=== PATIENT | male | born 1960 | race Caucasian/White ===

== ENCOUNTER → 2020-01-08 06:17 | Outpatient (CLI) | payer OTHER, SELFPAY ==
--- NOTE | 2020-01-08 06:18 | MRI_ITS ---
STUDY: MRI CERVICAL SPINE WITHOUT CONTRAST REASON FOR EXAM: Male, 59 years old. ddd pre op, L ARM NUMBNESS TECHNIQUE: Standardized fat and water weighted pulse sequences were obtained in the sagittal and axial planes. COMPARISON: 12/13/2019 FINDINGS: Cervical straightening. No significant scoliosis. Stable abnormal cord signal at the C4-5 level measuring approximately 1.2 cm in length (sagittal image 6 series 2). Nonspecific slightly asymmetric vascular flow voids. Moderate/severe multilevel facet joint arthrosis. No significant spondylolisthesis. Normal foramen magnum and brainstem-cervical cord junction. Normal craniovertebral junction. Normal anterior atlantoaxial articulation. Normal odontoid process. C2-3: Minimal endplate spondylosis. Shallow disc bulge. No central canal narrowing. Mild left neural foraminal narrowing. Normal right neural foramina. C3-4: Partial congenitally fused endplates. Congenital disc height loss. Normal neural foramina. C4-5: Mild endplate spondylosis. Disc/osteophyte complex. Severe central canal narrowing. Severe bilateral neural foraminal narrowing. C5-6: Mild endplate spondylosis. Disc/osteophyte complex asymmetric to the left. Severe central canal narrowing. Severe bilateral neural foraminal narrowing, left greater than right. C6-7: Mild endplate spondylosis. Disc/osteophyte complex. Moderate central canal narrowing. Severe bilateral neural foraminal narrowing. C7-T1: Normal endplates. Shallow disc/osteophyte complex. Normal central canal. Mild/moderate bilateral neural foraminal narrowing. MRI/Spine Cervical (Routine) IMPRESSION: Stable abnormal C4-5 cord signal (statistically myelomalacia; correlate short-term follow-up postcontrast evaluation) Stable multilevel intervertebral disc disease with central canal narrowing predominantly at C4-5 and C5-6 Multilevel severe neural foraminal narrowing predominantly at C4-5 through and C6-7 Cervical straightening with moderate/severe osteoarthritis Nonspecific asymmetric vertebral artery vascular flow voids (correlate ultrasound as clinically necessary) Electronically Signed: Anand Rosenberg DO at 11:20 EST Tel , Service support ,
== END ==
PROVIDERS: PCP Internal Medicine; Referring Provider Orthopaedic Surgery; Visit Provider Orthopaedic Surgery
DX: M54.12 Radiculopathy, cervical region (principal); Z20.828 Contact with and (suspected) exposure to other viral communicable diseases
CPT/HCPCS: 72141; 87426

== ENCOUNTER 2020-01-09 05:34 | Inpatient (IN) | payer OTHER, SELFPAY ==
[2019-12-20 13:08] VITALS: BMI 26.6
--- NOTE | 2020-01-03 10:01 | EKG12_ITS ---
Test Reason : PRE OP Blood Pressure : / mmHG Vent. Rate : 074 BPM Atrial Rate : 074 BPM P-R Int : 154 ms QRS Dur : 076 ms QT Int : 356 ms P-R-T Axes : 032 -20 034 degrees QTc Int : 395 ms Normal sinus rhythm Septal infarct , age undetermined Abnormal ECG Confirmed by CHERISE CH, MARTIN ([id number]), slot editor DYLAN FATIMA ([id number]) on 01/07/2020 9:28:48 AM Referred By: Alan Dueñas Confirmed By:MARTIN LUONG MD
[2020-01-03 10:49] LABS: Absolute Lymphocyte Count 1.62 X10^3/uL (0.83-4.51); Absolute Neutrophil Count 4.4 X10^3/uL (2.0-7.7); Basophil# 0.05 X10^3/uL; Basophil% 0.7 % (0-1); Eosinophil# 0.23 X10^3/uL; Eosinophils% 3.3 % (0-5); Hematocrit 43.7 % (40-54); Lymphocyte # 1.62 X10^3/ul (4.0); Lymphocyte % 23.4 % (19-41); Mean Corp Hgb Conc 34.3 g/dL (32-36); Mean Corpuscular Hgb 31.7 pg (27.0-32.0); Mean Corpuscular Volume 92.4 fL (80-94); Mean Platelet Vol. 9.4 fl (6.2-12.0); Monocyte# 0.61 X10^3/uL; Monocyte% 8.8 % (0-10); NRBC Flagged by Analyzer 0 % (0-5); Neutrophil # 4.38 X10^3/uL (2.7-7.7); Neutrophil % 63.5 % (47-70); POSITIVE COUNT YES; RBC Distribution Width CV 12.2 % (11.6-14.6); RBC Distribution Width SD 41.5 fl (35.1-43.9); Red Blood Count 4.73 M/mm3 (4.6-6.2); White Blood Count 6.9 K/mm3 (4.4-11.0)
[2020-01-03 10:51] LABS: International Normalized Ratio 0.9; Prothrombin Time (Protime)PT. 12.1 SECONDS (11.7-14.9)
[2020-01-03 10:52] LABS: Partial Thromboplast Time 25.3 Seconds (24.1-36.2)
[2020-01-03 11:17] LABS: Differential Indicated SCAN CRITERIA MET
[2020-01-03 11:19] LABS: Anion Gap 5 (5-15); BUN 20 mg/dL (7-18); BUN/Creat Ratio 24.7 RATIO (10-20); Calcium,Total 9.3 mg/dL (8.5-10.1); Chloride 104 mmol/L (98-107); Creatinine, Serum 0.81 mg/dL (0.70-1.30); Differential Comment SCANNED; EST Glomerular Filtration Rate 104 mL/min (>60); Est Glom Filt Rate - Afr Amer 126 mL/min (>60); Glucose 88 mg/dL (74-106); Magnesium 1.9 mg/dL (1.6-2.6); Platelet Estimate ADEQUATE (ADEQ); Potassium 4.4 mmol/L (3.5-5.1); Sodium Level 137 mmol/L (136-145)
[2020-01-03 11:37] LABS: AST(SGOT) 19 U/L (15-37); Alanine Aminotransfer ALT/SGPT 25 U/L (16-61); Albumin, Serum 4.1 g/dL (3.2-5.0); Alkaline Phosphatase 133 U/L (45-117); Bilirubin, Direct 0.05 mg/dL (0.00-0.30); Globulin 3.3 g/dL (2.2-4.2); Protein, Total 7.4 g/dL (6.4-8.2)
[2020-01-03 13:25] LABS: HIV - WCH Non-Reactive (Nonreactive)
[2020-01-04 06:08] LABS: HEPATITIS B SURFACE AG Negative (Negative); Hepatitis A AB, Total Negative (Negative); Hepatitis A IgM Antibody Negative (Negative); Hepatitis B Core AB IgM Negative (Negative); Hepatitis B Core Ab Total Negative (Negative); Hepatitis C Ab <0.1 s/co ratio (0.0-0.9)
[2020-01-04 08:05] LABS: Hep B Surface Antibodies Non Reactive (.)
[2020-01-09] VITALS (12 sets, daily range): BP systolic 116–140; BP diastolic 72–96; PULSE 71–90; RESP 14–18; TEMP 36.7–37.6; O2SAT 92–100; BMI 27.0
--- NOTE | 2020-01-09 06:00 | HP_ITS ---
Intake Vital Signs 12/20/19 Height 5 ft 6 in 12/20/19 Weight: 165 lb 12/20/19 BMI 26.6 Intake Visit Reasons: Cervical spine Accompanied by: Spouse Is patient in pain?: Yes Pain scale (1-10): 8 Allergies No Known Allergies Allergy (Unverified 12/20/19 13:09) Medications naproxen sodium 220 mg capsule 220 mg PO BID PRN 12/20/19 [History Confirmed 12/20/19] PFS Medical History (Updated 12/20/19 @ 13:11 by Elida Enriquez) H/o right foot surgery (Acute) h/o lumbar surgery (Acute) Surgical History (Updated 12/20/19 @ 13:11 by Elida Enriquez) History of tonsillectomy (Acute) Family History (Updated 12/20/19 @ 13:12 by Elida Enriquez) Mother Myocardial infarction Hypertension Father Hypertension Social History (Updated 12/20/19 @ 15:[address] Alan Dueñas DO) household members: spouse housing: house current occupational status: employed pets and animals: Yes Smokeless tobacco user: chewing tobacco alcohol intake: current alcohol intake frequency: a few times a week substance use type: does not use what type of physical activity do you participate in: none seatbelt use: always do you feel safe at home: Yes HPI Cervical spine: Details: Parts of this documentation were recorded by a scribe, this documentation accurately reflects the service provided and the decisions made by me, Dr. Alan Dueñas DO 12/20/19 1300. ARUN HOLMAN is a 59 year old M here today to establish as a new patient. Patient was referred by from [facility]. Patient has c/o cervical pain. Reports numbness down legs and arms. Denies any accident or injuries. Denies previous surgeries with his cervical and denies previous injections. Patient has been taking Aleve for pain relief. Patient believes this issue started years ago, worsening. Patient brought in an imaging disc from [facility] with cervical x-ray and MRI. Mr. Lorenz is a most pleasant gentleman 59 years old who is here today in the company of his . He was referred to me by Dr. Shane Dawkins at [facility]. Dr. Dawkins discussed the case with me prior to my seeing him. He and his relate that he has been walking funny for many many months. The last 3 or 4 months that has gradually even worsened. He also gets numbness in both his legs in both his arms. The left arm in particular feels heavy according to the patient. He has significant amount of pain in his neck. The and both agree that gradually the ambulation and the symptoms have worsened. He states that sometimes when he empties his bladder he feels like perhaps his not all the way empty. However he has no trouble starting his stream. He has not soiled himself. He denies history of unexplained weight loss night fever sweats or chills. On examination it is noted that he has a spastic unsteady gait. This is typical of serious cord signs. He has hyperreflexia particularly of the patellar reflexes on both sides. He has no clonus per se but he has Babinski's are upgoing. He has reasonable strength of the major muscle groups of the lower extremity. His neck is stiff to extension or flexion. He has weakness of the biceps on the left as compared to the right. He perhaps has some weakness of the triceps on the left as compared to the right. Wrist extensors seem to be good. He has atrophy of the left biceps muscle as compared to the right. Wrist extensors are equal bilaterally. I reviewed his MRI scan that demonstrates severe stenosis at C4-5 with marked to myelomalacia just below it. In addition he has severe stenosis at C5-6 though not as bad and there is no hard evidence of any myelomalacia at that level. There is also degeneration at see 6 7 however there is no stenosis there. Plain x-rays demonstrate degeneration at all 3 said levels C4-5 C5-6 and C6-7. Our plan is to proceed with surgical decompression in the form of anterior cervical fusion and discectomy at C4-5 C5-6 and possibly C6-7. I have not decided if C6-7 should even be done but the other 2 must be done. I will convey this to Dr. Dawkins who would like to assist with the surgery. I had a long discussion with the patient and his . I discussed the absolute necessity to decompress the spinal cord because of the myelomalacia of the cord. I described it to them as a degeneration of the cord secondary to pressure. They were in full agreement that we must proceed as quick as is reasonably possible. This is not an emergency however is is a relative urgency and we will do it in the not too distant future. I answered all their questions I will see him again 1 week prior to surgical intervention. ROS Const Reports weakness Musc Reports system reviewed and no additional complaints, except as docu, Reports joint pain, Reports limited joint movement, Reports numbness, Reports stiffness, Reports tingling Skin/Breast Denies system reviewed and no additional complaints, except as docu, Denies dry skin, Denies redness, Denies lesions, Denies new lesions, Denies non-healing lesions, Denies itching, Denies rash, Denies skin ulcer, Denies sores, Denies unusual bruising, Denies wounds Neuro Yes system reviewed and no additional complaints, except as docu, Yes numbness, Yes tingling, Yes weakness Assessment & Plan Orders Orders: Cerv Spine 2 or 3 Views Today M54.2 Coding Level of Care Code Off vis,new,level 4 Time Spent (min) 50
[2020-01-09 06:15] LABS: Bedside Glucose 100 mg/dL (70-110)
[2020-01-09] MEDS: Lactated Ringers 1,000 ML 100 ML IV ×4 (06:33→21:56)
[2020-01-09] MEDS: Acetaminophen 500 MG Tablet 1000 MG PO (06:35)
[2020-01-09] MEDS: Heparin 10,000 UNITS/10 ML Vial 10000 UNITS (07:22)
--- NOTE | 2020-01-09 07:30 | DISC_PTH ---
PATIENT: ARUN HOLAMN LOC: [facility] U#:[id number] AGE/SX: 59/M ROOM: [facility]308 RE01/09/[address]: Dr. Alan Dueñas DO : 1960 BED: 1 DIS: 01/10/2020 SPEC #: [id number] RECD: 01/09/20 14:51 STATUS: LASHA REQ #: [id number] ANNE MARIE: 01/09/20 07:[address]: Alan Dueñas DEPT: SURGICAL PATHOLOGY RECD BY: Palak Vazquez ENTERED: 01/10/20 07:39 SP TYPE: DISC OTHR DR: DO Dr. Fabián Blanco DO Tissues: A - Intervertebral disc, NOS B - Intervertebral disc, NOS Procedures: Decalcification bone/plaque Surgery Specimen Level III HEADER OPERATION: ERAS, discectomy anterior cervical fusion C4-5, C5-6, C6-7 PRE-OP DIAGNOSIS: C4-5 with marked myelomalacia, severe stenosis C5-6 TISSUE SUBMITTED: A - Cervical disc C4-5, B - Cervical disc C5-7 MICROSCOPIC DIAGNOSIS A. Cervical disc, C4-5, discectomy: Degenerative change. Focal bone marrow elements with no pathologic change. B. Cervical disc, C5-7, discectomy: Degenerative change. AM:kimberley 01/14/20 MICROSCOPIC DESCRIPTION Slides are reviewed. GROSS DESCRIPTION A - Received in fixative is one container labeled with the patient's name and designated cervical disc C45. The specimen consists of multiple irregular and indurated fragments of white-bautista soft tissue that in aggregate measure 2.5 x 1.5 x 0.2 cm. The specimen is totally submitted in one cassette after decalcification. B - Received in fixative is one container labeled with the patient's name and designated cervical disc C57. The specimen consists of multiple irregular and indurated fragments of white-bautista soft tissue that in aggregate measure 2.5 x 1.5 x 0.2 cm. The specimen is totally submitted in one cassette after decalcification. / AM:kimberley 01/13/20 TC:5 CPT: 55560 x2, 23879 x2
--- NOTE | 2020-01-09 07:30 | RAD_ITS ---
STUDY: X-RAY - CERVICAL SPINE REASON FOR EXAM: Male, 59 years old. Pre-incision for anterior cervical fusion, c4-5, c5-6, c7. TECHNIQUE: Lateral view of the cervical spine was obtained. COMPARISON: Lateral view of the cervical spine 01/09/2020. FINDINGS: Needle localizer device is pointing in the anterior aspect of the C6-C7 disc space level. This was previously penetrating the lower anterior C5 vertebral body. RAD/Spine 1 View Any Level IMPRESSION: Needle localizer device this in the anterior aspect of the C6-C7 disc space, previously penetrating the lower C5 vertebral body. Electronically Signed: Maximino Negron MD at 12:36 EST , Service support ,
--- NOTE | 2020-01-09 07:30 | RAD_ITS ---
STUDY: X-RAY - CERVICAL SPINE REASON FOR EXAM: Male, 59 years old. Anterior cervical fusion, positioning check c6-7. TECHNIQUE: 1 lateral view of the cervical spine was obtained. COMPARISON: 12/20/2019. FINDINGS: Normal anterior atlantoaxial articulation. Normal odontoid process. Normal cervical lordosis. 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 Needle localizer penetrating the lower C5 vertebral body. The soft tissue structures are unremarkable. RAD/Spine 1 View Any Level IMPRESSION: Needle localizer penetrating the lower C5 vertebral body. Electronically Signed: Maximino Negron MD at 12:26 EST , Service support ,
[2020-01-09] MEDS: THROMBIN (RECOMBINANT) 20,000 UNIT VIAL 20000 UNIT TOPICAL (08:00)
[2020-01-09] MEDS: Cefazolin 2 GM in 0.9% Normal Saline 100 ML IV (08:09)
--- NOTE | 2020-01-09 12:48 | RAD_ITS ---
HISTORY: anterior cervical fusion C7 position check ADDITIONAL HISTORY: None provided. EXAMINATION/TECHNIQUE: XR Spine Cervical 1 View Number of images including paperwork: 2 COMPARISON: 01/09/2020 FINDINGS/IMPRESSION: Single lateral view shows performed for operative purposes shows anterior plate and interbody screws C4-C7 with intervening disc spacers. No definite radiographic evidence of hardware complication. at 0022 Reported and signed by: Radha Mtz MD Electronically Signed: Radha Mtz MD at 0:22 EST Tel , Service support , RAD/Spine 1 View Any Level
--- NOTE | 2020-01-09 13:46 | OP.PCM_ITS ---
Report of Operation Description of Surgical Findings:: Preoperative diagnosis: #1 cervical myelopathy secondary to large herniated C4-5 disc with secondary myelomalacia of the spinal cord at that level #2 gated disc with her disc disease at C6-7 with left C6 radiculopathy #3 degenerative disc disease C6-7 Postoperative diagnoses: Same Procedures: 1. Cervical fusion C6-7 #2 insertion of titanium cage C6-7 #3 anterior cervical fusion C5-6 #4 insertion of titanium cage C5-6 #5 anterior cervical fusion C4-5 #6 insertion of cage at C4-5 #7 application of spinal plate from C4-C7 #8 bone marrow aspirate from right iliac crest Surgeon: Dr. Dueñas [employer]: Dr. Bigg Dawkins Second quality control assistant: Costa Gonzalez Anesthesia: [facility] EBL: 30 cc +60 cc of bone marrow aspirate Drain: 1/4 inch [place] Complications: None Patient was taken to the OR where he was put in the supine position under general endotracheal anesthesia. A Ashley catheter was inserted. Needle placements were done by the medication technician performing the neuro monitoring during the case. Once positioned properly with a bolster under her shoulders to gently extend his neck a preoperative x-ray was taken with a needle taped to the side of the neck. Once this was done I was able to marked the neck with a small laceration using the end of an 18-gauge needle in the midline which would be the starting point for the incision. The neck and right iliac crest were then prepped and draped in standard fashion. A transverse incision in line with longer's lines starting just across the midline toward the left and going toward the right to the edge of the right sternocleidomastoid muscle. Subcutaneous tissues were incised the length of the skin incision. I then elevated the subcutaneous tissues but is undermined them off of the platysma in both a cephalad direction for a couple or 3 cm in a caudad direction 2 to 3 cm. We [place] retractor was then put in place to hold the skin open. I then cauterized the line along the near the medial portion of the platysma. Using tissue scissors I then split the platysma in an up-and-down fashion along the cauterized line. I then began development of the fascial planes first opening the superficial of the cervical fascia in both directions. Fashion I was able to feel the carotid pulse and I retracted it toward the right side and retracted the trachea and esophagus toward the left side. I then developed more fascial planes including the exploitation of the pretracheal fascia. Found the precerv ical fascia and the spinal vertebra. I was able to feel the anterior osteophytes along 3 levels I then marked the one that I thought would be C6-7 with a bent needle and an intraoperative x-ray was taken to confirm that that was indeed C6-7. I then removed the needle and cauterized the middle of the anterior disc so as to not lose her place. The neck elevated the periosteum off of the anterior osteophytes to both directions. I then removed the osteophytes with double-action rongeurs and a gavin bur. Made the anterior vertebral bodies relatively flat. Cauterized the edge of the longus coli muscles and elevated them gently off of the disc space on either side. Self retaining lap belt retractors were then used placed under the coli and giving us good access to the space. I then used a 15 blade to remove the anterior a just note that it was calcified and I was able to cut some of it has had to open some up with an osteotome. Fashion I remove the anterior annulus and then continue to remove the nucleus from within the disc space. Then used curettes to go all the way back to the posterior part of the annulus and then remove the cartilage off both endplates of see 6 in the endplate of C7. He is my trials started with a 5 mm trial and L and went to a 6mm trial the larger of the 2 cage sizes. Or 16-1/2 x 14. But up using a 6 mm high cage. The cage was then opened. Prior to this I placed a very small incision over the right ASIS and used a Jamshidi needle tamped into place and we were able to obtain 60 cc of bone marrow aspirate. This was handed off to the technicians I in the room who then use their machine to spin down and the plasma from the stem cells and the red cells. The stem cells were then concentrated between 8 and 10 times and given back to us. I then filled the middle of the 6 mm cage with spongy allograft bone that was then soaked in the patient's own stem cell. This was tamped into place and countersunk a millimeter. Then moved up to the next level which would be 5 6. An elevator the coli muscles off either side and put the retractors at the 5 6 level. I then cut the anterior annulus again it was calcified and we had to use an osteotome to release part of it but finally it was removed. Removed more disc from the disc space with pituitary rongeurs. Note that he had this left C6 radiculopathy in addition to the myelopathy because of the hard disc disease that he had and to the herniation that he had at 5 6 to the left side. Using a gavin bur I then burred the uncinate process down to a thin shell. Technique was done repeatedly followed by the instillation of cold saline until it was a thin shell of bone left. Then pulled this away with a small sharp curettes completed decompressing the base of the C6 nerve root. Was open as it was checked with a nerve hook. I then used curettes to remove all the cartilage off both endplates. Measurements were taken with trials and we found that we would need a 7 mm large cage at this level. As it the other level we used the broach to broach the space until it was both flat and the endplate was bleeding. I then tamped the 7 mm cage into the place after again filling it with spongy bone and soaking it in the patient's own stem cells. Then moved up to the C4-5 level. Again I cauterized the coli muscles on the edges on either side and elevated them gently off of the disc space I then put the self-retaining retractors in place. I first I removed the periosteum off of the anterior osteophytes and double-action rongeurs and a bur was able to flatten those down. Sent again as the other 2 levels it was also calcified I had to use both the osteotome and sharp 15 blade knife to cut it out and remove it. Pituitary rongeurs I removed more disc from the disc that from within the disc space back to the posterior annulus but that we did use distractors that were intervertebral distractors first on one side than the next. Using the gavin bur I was able to increase the size of the posterior space and opened the curved uncinate areas on both sides to make them more a flat for receipt of a cage. Using both a curette and a bur I was able to slowly go all the way back to the full removal of the exterior annulus right down to the posterior longitudinal ligament. Note that this annulus was protruded significantly into the canal giving him the severe spinal stenosis at that level. This was the cause of the myelomalacia just below the C4-5 disc. Then took her measurements for the cage we found that we would be able to use a 9 mm high's 16-1/2 x 14 cage all the cages had 7 degree angles. I again prepared to the endplates by removing all the cartilage off of them and then using the broach to flatten to allow for the cage. The 9 mm cage was then filled with spongy allograft bone and soaked in the patient's own stem cells. This was then tamped into place and countersunk a couple of millimeters. We left the self-retaining retractors at that level and that we moved down to below that level to open the incision with another self- retaining retractor. Gave us reasonable access to the entire 3 levels. Used a spider plate that was 68 mm long with 8 holes landed up anteriorly with 2 holes over C4 to over C5 to over C6 and 2 over C7. Implants were then stopped put in place to keep the cage from moving in the first of 4 screws were inserted. We used the awl to start a hole the use of self-tapping 16mm long screws and put a 2 into each of the 4 vertebra. This was observed to the lateral x-ray was found to be very satisfactory with good position of the plate the screws and cages. Note that thorough irrigation was carried out in the course of the case every 15 or 20 minutes. We did 1 final time. We then placed amniotic membranes directly over the 8 hole plate to prevent their adhesions to the esophagus. 1/4 inch [place] drain was then inserted. We then closed the platysma and running fashion with 5-0 Vicryl. This was followed by closure of the subcutaneous tissues with 5-0 Vicryl in interrupted fashion. This reapproximated the skin and there was no need for outside stitches. Sterile dressings were applied note that a safety pin was placed through the drain to prevent a suction into the wound. The patient was then recovered in the OR he was moved to his hospital bed and taken to recovery in satisfactory condition.
--- NOTE | 2020-01-09 16:07 | PCM.PROGNOTE ---
Subjective: Patient seen and examined. Pain currently well controlled. Denies current symptoms or complaints. - Physical Exam Vitals/I&O's: Vital Signs Temp Pulse Resp BP Pulse Ox 98.9 F 81 16 137/83 H 92 01/09/20 15:44 01/09/20 15:44 01/09/20 15:44 01/09/20 15:44 01/09/20 15:44 Oxygen Flow Rate (L/min) 6 Oxygen Delivery Method Room Air Weight: 167 lb 5.294 oz Body Mass Index (BMI) 27.0 Intake and Output for Last 24 Hours 01/07/20 01/08/20 01/09/20 23:59 23:59 23:59 Intake Total 2214.5 / 2214.5 Output Total 300 / 300 Balance 1914.5 / 1914.5 General: Alert, Oriented x3, Cooperative HEENT: Atraumatic, PERRLA, EOMI, Normocephalic Neck: Supple, No JVD, Negative Carotid Bruits Lungs: Clear to auscultation, Normal air movement Cardiovascular: Regular rate, No murmurs Abdomen: Bowel Sounds Present, Soft, Non Tender Extremities: No clubbing, No cyanosis, No edema, Capillary Refill Less than 3 Seconds Skin: No rashes, No breakdown Musculoskeletal: No Tenderness to Palpation of Joints or Extremities Neurological: Cranial nerves II-XII grossly intact, Neuro grossly intact Psych/Mental Status: Normal Affect, Appropriate Laboratory Results 01/09/20 06:07: POC Glucose 100 Current Medications Enteral Nutritional Formula (Ensure Surgery 237 Ml Liquid) 237 ml PO TIDCM [facility] Famotidine (Famotidine 20 Mg Tablet) 20 mg PO BID [facility] Lactated Ringer's () 1,000 mls @ 100 mls/hr IV .Q10H [facility] Cefazolin Sodium () 1 gm in 50 mls @ 100 mls/hr IV Q8H [facility] Stop: 01/10/20 00:29 Sodium Chloride () 250 mls @ 15 mls/hr IV .[id number] PRN PRN Reason: Saline Flush Sodium Chloride () 250 mls @ 15 mls/hr IV .[id number] PRN PRN Reason: Additional IVPB Infusion Insulin Human Lispro (Insulin Lispro 100 Unit/Ml Insuln.Pen) 1 - 6 unit SC Q4H PRN PRN; Protocol PRN Reason: BG>/= 180, SEE PROTOCOL Stop: 01/09/20 18:00 Morphine Sulfate (Morphine 4 Mg/Ml Syringe) 2 - 4 mg IV Q2H PRN PRN PRN Reason: Pain Score 6-10 Morphine Sulfate (Morphine 2 Mg/Ml Syringe) 2 - 4 mg IV Q2H PRN PRN PRN Reason: Pain Score 6-10 Ondansetron HCl (Ondansetron 4 Mg/2 Ml Vial) 4 mg IV Q8H PRN PRN PRN Reason: NAUSEA Senna/Docusate Sodium (Senna/Docusate Sodium 1 Tablet) 2 tablet PO BID [facility] Sodium Chloride (0.9% Nacl Peripheral Flush Adult/Peds) 5 - 15 ml IV UD PRN PRN Reason: SALINE FLUSH Sodium Chloride (0.9% Saline Lock 10 Ml Syringe) 10 - 40 ml IV UD PRN PRN Reason: SALINE FLUSH Zolpidem Tartrate (Zolpidem Tartrate 5 Mg Tablet) 5 mg PO QHS PRN PRN PRN Reason: INSOMNIA Medical Necessity - Tobacco Use Tobacco Use: Chew Assessment/Plan 1. DDD cervical spine- Cervical myelopathy secondary to large herniated C4-5 disc with secondary myelomalacia of the spinal cord, gated disc disease C6-7 with left C6 radiculopathy and degenerative disc disease C6-7-status post cervical fusion C6-7 with insertion of titanium cage C6-7, anterior cervical fusion C5-6 insertion of titanium cage C5-6, anterior cervical fusion C4-5 with insertion of cage C4-5 application of spinal plate from C4-C7 which was performed by Dr. Dueñas 01/09/2020. Management per surgery. Patient denies other medical history. He takes no daily medications. Hospitalist services available if any issues or concerns arise. DVT prophylaxis- SCDs This patient was seen by Paty Truong NP-Anibal under the supervision of Dr. Pritchard.
[2020-01-09] MEDS: Cefazolin 1 GM/50 ML BAG IV ×2 (17:13→23:20)
[2020-01-09] MEDS: Morphine 2 MG/ML Syringe IV (20:53)
[2020-01-09] MEDS: Senna/Docusate Sodium 1 Tablet 2 TABLET PO (21:06)
[2020-01-09] MEDS: Famotidine 20 MG Tablet PO (21:06)
[2020-01-10 03:17] VITALS: BP 152/89; PULSE 78; RESP 18; TEMP 36.7; O2SAT 97
[2020-01-10] MEDS: Morphine 2 MG/ML Syringe IV (03:24)
[2020-01-10] MEDS: 0.9% NaCl Peripheral Flush Adult/Peds IV ×2 (05:42→11:58)
[2020-01-10 07:20] VITALS: BP 137/91; PULSE 88; RESP 18; TEMP 36.8; O2SAT 96
[2020-01-10] MEDS: Famotidine 20 MG Tablet PO (08:55)
[2020-01-10] MEDS: Senna/Docusate Sodium 1 Tablet 2 TABLET PO (08:55)
--- NOTE | 2020-01-10 09:50 | CASEMGMT ---
RN CM Face to Face with patient for initial transition planning/care coordination assessment. RN CM introduced self and role at [facility]. Patient sitting in chair, alert and oriented. Patient willing to participate in assessment and is able to answer all questions appropriately. Care providers, pharmacy, and demographics verified. Patient wishes to discharge home, denies need for home health at this time. Patient states he has no further needs or concerns at this time. CM to follow for discharge planning needs that may arise. PCP: Mary Specialists: [facility] Preferred Pharmacy: [facility] Insurance: MMO Prescription Benefit: yes Living Will/HPOA: none LNOK: Living Arrangements: Patient lives with in a 1 story home with ramp to enter the home. Patient was independent at home prior to discharge. Transportation: DME/HHC: Patient states she has shower chair, raised toilet, cane, walker, and grab bars. Patient denies previous HHC. Disposition Plan: Patient to discharge home with family support and follow-up plans in place. Kelly PRESSLEY, RN, CM
--- NOTE | 2020-01-10 10:45 | PCM.PROGNOTE ---
<Paty Truong CHURNER - Last Filed: 01/10/20 10:47> Subjective: Patient seen and examined. Reports pain is tolerable. Complains of mild sore throat. Denies other symptoms or complaints. - Physical Exam Vitals/I&O's: Vital Signs Temp Pulse Resp BP Pulse Ox 98.3 F 88 18 137/91 H 96 01/10/20 07:20 01/10/20 07:20 01/10/20 07:20 01/10/20 07:20 01/10/20 07:20 Oxygen Flow Rate (L/min) 6 Oxygen Delivery Method Room Air Weight: 167 lb 5.294 oz Body Mass Index (BMI) 27.0 Intake and Output for Last 24 Hours 01/08/20 01/09/20 01/10/20 23:59 23:59 23:59 Intake Total 3797.83 / 3797.83 735 / 735 Output Total 1600 / 1600 1175 / 1175 Balance 2197.83 / 2197.83 -440 / -440 General: Alert, Oriented x3, Cooperative HEENT: Atraumatic, PERRLA, EOMI, Normocephalic Neck: Supple, No JVD, Negative Carotid Bruits Lungs: Clear to auscultation, Normal air movement Cardiovascular: Regular rate, No murmurs Abdomen: Bowel Sounds Present, Soft, Non Tender, Non-Distended Extremities: No clubbing, No cyanosis, No edema, Capillary Refill Less than 3 Seconds Skin: No rashes, No breakdown Musculoskeletal: No Tenderness to Palpation of Joints or Extremities Neurological: Cranial nerves II-XII grossly intact, Neuro grossly intact Psych/Mental Status: Normal Affect, Appropriate Current Medications Hydrocodone Bitart/Acetaminophen (Hydrocodone Bitartrate/Apap 5/325 Tablet) 7.5 tablet PO Q4H PRN PRN PRN Reason: Pain Score 1-10 Enteral Nutritional Formula (Ensure Surgery 237 Ml Liquid) 237 ml PO TIDCM [facility] Last Admin: 01/10/20 08:59 Dose: Not Given Documented by: Famotidine (Famotidine 20 Mg Tablet) 20 mg PO BID [facility] Last Admin: 01/10/20 08:55 Dose: 20 mg Documented by: Lactated Ringer's () 1,000 mls @ 100 mls/hr IV .Q10H [facility] Last Admin: 01/10/20 05:47 Dose: Not Given Documented by: Sodium Chloride () 250 mls @ 15 mls/hr IV .[id number] PRN PRN Reason: Saline Flush Sodium Chloride () 250 mls @ 15 mls/hr IV .[id number] PRN PRN Reason: Additional IVPB Infusion Morphine Sulfate (Morphine 4 Mg/Ml Syringe) 2 - 4 mg IV Q2H PRN PRN PRN Reason: Pain Score 6-10 Morphine Sulfate (Morphine 2 Mg/Ml Syringe) 2 - 4 mg IV Q2H PRN PRN PRN Reason: Pain Score 6-10 Last Admin: 01/10/20 03:24 Dose: 2 mg Documented by: Ondansetron HCl (Ondansetron 4 Mg/2 Ml Vial) 4 mg IV Q8H PRN PRN PRN Reason: NAUSEA Senna/Docusate Sodium (Senna/Docusate Sodium 1 Tablet) 2 tablet PO BID [facility] Last Admin: 01/10/20 08:55 Dose: 2 tablet Documented by: Sodium Chloride (0.9% Nacl Peripheral Flush Adult/Peds) 5 - 15 ml IV UD PRN PRN Reason: SALINE FLUSH Last Admin: 01/10/20 05:42 Dose: 10 ml Documented by: Sodium Chloride (0.9% Saline Lock 10 Ml Syringe) 10 - 40 ml IV UD PRN PRN Reason: SALINE FLUSH Zolpidem Tartrate (Zolpidem Tartrate 5 Mg Tablet) 5 mg PO QHS PRN PRN PRN Reason: INSOMNIA Medical Necessity - Tobacco Use Smoking Status: Former smoker Tobacco Use: Chew Assessment/Plan 1. DDD cervical spine- Cervical myelopathy secondary to large herniated C4-5 disc with secondary myelomalacia of the spinal cord, gated disc disease C6-7 with left C6 radiculopathy and degenerative disc disease C6-7-status post cervical fusion C6-7 with insertion of titanium cage C6-7, anterior cervical fusion C5-6 insertion of titanium cage C5-6, anterior cervical fusion C4-5 with insertion of cage C4-5 application of spinal plate from C4-C7 which was performed by Dr. Dueñas 01/09/2020. Management per surgery. Patient denies other medical history. He takes no daily medications. Hospitalist services available if any issues or concerns arise. Will sign off at this time. DVT prophylaxis- SCDs This patient was seen by CARLOS Deutsch under the supervision of Dr. Springer. <Mejia Lloyd - Last Filed: 01/10/20 14:35> Objective: Patient had cervical spine discectomy surgery yesterday. Complains of mild sore throat. Physical exam General: Alert, Oriented x3, Cooperative HEENT: Atraumatic, PERRLA, EOMI, Normocephalic Oral: No Gingival or Mucosal Lesions/ Ulcerations Neck: Surgical dressing present on the right anterior lateral neck. Dry. Cervical spine collar. No JVD, Negative Carotid Bruits Lungs: Air entry diminished in bilateral lung bases. No crepitation/rhonchi Cardiovascular: Regular rate, Regular Rhythm, Normal S1, Normal S2, No murmurs Abdomen: Bowel Sounds Present, Soft, Non Tender, Non-Distended : No renal angle tenderness. No suprapubic tenderness. Extremities: No edema, Capillary Refill Less than 3 Seconds Skin: No rashes, No breakdown Musculoskeletal: Mild weakness of the biceps on the left, triceps with mild atrophy of the left biceps muscle. No Tenderness to Palpation of Joints or Extremities Neurological: Cranial nerves II-XII grossly intact, Numbness and tingling of both upper extremities.bilateral knee reflex hyper 3/4. Babinski upgoing, chronic. Psych/Mental Status: Normal Affect, Appropriate. - Physical Exam Vitals/I&O's: Vital Signs Temp Pulse Resp BP Pulse Ox 98.3 F 88 18 137/91 H 96 01/10/20 07:20 01/10/20 07:20 01/10/20 07:20 01/10/20 07:20 01/10/20 07:20 Oxygen Flow Rate (L/min) 6 Oxygen Delivery Method Room Air Weight: 167 lb 5.294 oz Body Mass Index (BMI) 27.0 Intake and Output for Last 24 Hours 01/08/20 01/09/20 01/10/20 23:59 23:59 23:59 Intake Total 3797.83 / 3797.83 1555 / 1555 Output Total 1600 / 1600 1175 / 1175 Balance 2197.83 / 2197.83 380 / 380 Current Medications Hydrocodone Bitart/Acetaminophen (Hydrocodone Bitartrate/Apap 5/325 Tablet) 1.5 tablet PO Q4H PRN PRN PRN Reason: Pain Score 1-10 Last Admin: 01/10/20 12:11 Dose: 1.5 tablet Documented by: Enteral Nutritional Formula (Ensure Surgery 237 Ml Liquid) 237 ml PO TIDCM [facility] Last Admin: 01/10/20 12:00 Dose: Not Given Documented by: Famotidine (Famotidine 20 Mg Tablet) 20 mg PO BID [facility] Last Admin: 01/10/20 08:55 Dose: 20 mg Documented by: Lactated Ringer's () 1,000 mls @ 100 mls/hr IV .Q10H [facility] Last Admin: 01/10/20 05:47 Dose: Not Given Documented by: Sodium Chloride () 250 mls @ 15 mls/hr IV .[id number] PRN PRN Reason: Saline Flush Sodium Chloride () 250 mls @ 15 mls/hr IV .[id number] PRN PRN Reason: Additional IVPB Infusion Morphine Sulfate (Morphine 4 Mg/Ml Syringe) 2 - 4 mg IV Q2H PRN PRN PRN Reason: Pain Score 6-10 Morphine Sulfate (Morphine 2 Mg/Ml Syringe) 2 - 4 mg IV Q2H PRN PRN PRN Reason: Pain Score 6-10 Last Admin: 01/10/20 03:24 Dose: 2 mg Documented by: Ondansetron HCl (Ondansetron 4 Mg/2 Ml Vial) 4 mg IV Q8H PRN PRN PRN Reason: NAUSEA Senna/Docusate Sodium (Senna/Docusate Sodium 1 Tablet) 2 tablet PO BID [facility] Last Admin: 01/10/20 08:55 Dose: 2 tablet Documented by: Sodium Chloride (0.9% Nacl Peripheral Flush Adult/Peds) 5 - 15 ml IV UD PRN PRN Reason: SALINE FLUSH Last Admin: 01/10/20 11:58 Dose: 10 ml Documented by: Sodium Chloride (0.9% Saline Lock 10 Ml Syringe) 10 - 40 ml IV UD PRN PRN Reason: SALINE FLUSH Zolpidem Tartrate (Zolpidem Tartrate 5 Mg Tablet) 5 mg PO QHS PRN PRN PRN Reason: INSOMNIA Assessment/Plan This patient was seen in conjunction with CHURNERPaty. I have independently interviewed and examined the patient and reviewed pertinent history, examination findings, laboratory and plan of management. I have reviewed the note and agree with the documented findings with the few additional points. In brief, patient is 59 gentleman with history of chronic neck stiffness along with mild weakness of left biceps and triceps as per the note of Dr. Dueñas. Patient had cervical fusion of cervical fusion of C6-C7 with insertion of a titanium cage at C6-C7 along with an anterior cervical fusion C5-C6 with insertion of a titanium cage C5-C6, and anterior cervical fusion C4-C5 with insertion of cage at C4-C5 with application of a spinal plate from C4-C7, and a bone marrow aspirate from the right iliac crest for cervical myelopathy secondary to large herniated C4-5 disc with secondary myelomalacia of the spinal cord at that level. Left C6 radiculopathy and degenerative disc disease of C6-7. H&P reviewed. Patient has cervical collar. Surgical dressing is dry. Patient heart rate and blood pressure are good and in normal range. No hypoxia or tachypnea. Since patient does not have any active medical history of hypertension diabetes. Hospitalist service will sign off. I have discussed my assessment with Paty LOPES and orders have been reviewed. Inpatient E&M: 50156 Subs Hosp L2
[2020-01-10] MEDS: dexAMETHasone 4 MG/ML Vial 8 MG IV (11:58)
[2020-01-10] MEDS: HYDROcodone Bitartrate/Apap 5/325 Tablet PO (12:11)
[2020-01-10 13:30] VITALS: BP 130/88; PULSE 86; RESP 18; TEMP 36.7; O2SAT 94
--- NOTE | 2020-01-10 16:23 | PCM.PN.BLA ---
Progress Note Mr. Lorenz is seen on rounds. This is postop day #1. He has no complaints. His voice is reasonably clear and he does not have a Mireya's syndrome. Dressing was changed the drain was removed his incision is healing well. Eating a soft diet today and is having a little trouble swallowing but not a major problem. Logically of course he is unchanged he still has some mild clonus. Menses are still upgoing. No has atrophy of the left deltoid. Was given instructions and told that he could the dressing on until Monday at which time he is to take it off and leave it open to the air. He may take shower on Monday. He will be discharged today he is to follow-up in the office 1 week from Monday
--- NOTE | 2020-01-10 17:09 | DS.PCM_ITS ---
Discharge Summary Date of Admission: 01/09/20 Date of Discharge: 01/10/20 - Physical Exam Vitals/I&O's: Vital Signs Temp Pulse Resp BP Pulse Ox 98.1 F 86 18 130/88 H 94 01/10/20 13:30 01/10/20 13:30 01/10/20 13:30 01/10/20 13:30 01/10/20 13:30 Oxygen Flow Rate (L/min) 6 Oxygen Delivery Method Room Air Weight: 167 lb 5.294 oz Body Mass Index (BMI) 27.0 Intake and Output for Last 24 Hours 01/08/20 01/09/20 01/10/20 23:59 23:59 23:59 Intake Total 3797.83 / 3797.83 1555 / 1555 Output Total 1600 / 1600 1175 / 1175 Balance 2197.83 / 2197.83 380 / 380 Current Medications Hydrocodone Bitart/Acetaminophen (Hydrocodone Bitartrate/Apap 5/325 Tablet) 1.5 tablet PO Q4H PRN PRN PRN Reason: Pain Score 1-10 Last Admin: 01/10/20 12:11 Dose: 1.5 tablet Documented by: Enteral Nutritional Formula (Ensure Surgery 237 Ml Liquid) 237 ml PO TIDCM [facility] Last Admin: 01/10/20 12:00 Dose: Not Given Documented by: Famotidine (Famotidine 20 Mg Tablet) 20 mg PO BID [facility] Last Admin: 01/10/20 08:55 Dose: 20 mg Documented by: Lactated Ringer's () 1,000 mls @ 100 mls/hr IV .Q10H [facility] Last Infusion: 01/10/20 06:00 Dose: Infused Documented by: Sodium Chloride () 250 mls @ 15 mls/hr IV .[id number] PRN PRN Reason: Saline Flush Sodium Chloride () 250 mls @ 15 mls/hr IV .[id number] PRN PRN Reason: Additional IVPB Infusion Morphine Sulfate (Morphine 4 Mg/Ml Syringe) 2 - 4 mg IV Q2H PRN PRN PRN Reason: Pain Score 6-10 Morphine Sulfate (Morphine 2 Mg/Ml Syringe) 2 - 4 mg IV Q2H PRN PRN PRN Reason: Pain Score 6-10 Last Admin: 01/10/20 03:24 Dose: 2 mg Documented by: Ondansetron HCl (Ondansetron 4 Mg/2 Ml Vial) 4 mg IV Q8H PRN PRN PRN Reason: NAUSEA Senna/Docusate Sodium (Senna/Docusate Sodium 1 Tablet) 2 tablet PO BID [facility] Last Admin: 01/10/20 08:55 Dose: 2 tablet Documented by: Sodium Chloride (0.9% Nacl Peripheral Flush Adult/Peds) 5 - 15 ml IV UD PRN PRN Reason: SALINE FLUSH Last Admin: 01/10/20 11:58 Dose: 10 ml Documented by: Sodium Chloride (0.9% Saline Lock 10 Ml Syringe) 10 - 40 ml IV UD PRN PRN Reason: SALINE FLUSH Zolpidem Tartrate (Zolpidem Tartrate 5 Mg Tablet) 5 mg PO QHS PRN PRN PRN Reason: INSOMNIA
== END 2020-01-10 17:30 | disposition home or self-care (01) | DRG 472 ==
LOC: ACINP 05:54 → MS3 01-10 13:27
PROVIDERS: Anesthesiology; Admitting Provider Orthopaedic Surgery; PCP Internal Medicine; Visit Provider Orthopaedic Surgery
PROC: 0RG10J0 Fusion of Cervical Vertebral Joint with Synthetic Substitute, Anterior Approach, Anterior Column, Open Approach (ICD-10-PCS; CPT 22551; principal; 2020-01-09 07:00)
DX: M48.02 Spinal stenosis, cervical region (principal); G95.89 Other specified diseases of spinal cord; Z87.891 Personal history of nicotine dependence; M54.12 Radiculopathy, cervical region
CPT/HCPCS: 36415; 72020; 80048; 80076; 82962; 83735; 85025; 85610; 85730; 86703; 86704; 86705; 86706; 86708; 86709; 86803; 87077; 87081; 87340; 88304; 88311; 93005; 97163; 97166; C1713; C9803; J7120; A4216; J2405

== ENCOUNTER → 2023-08-09 | Outpatient (CLI) | payer OTHER, SELFPAY ==
--- NOTE | 2023-08-09 07:52 | CT_ITS ---
STUDY: CT RIGHT HIP REASON FOR EXAM: Male, 63 years old. templating for right VERONICA CONTRAST: None. TECHNIQUE: Transaxial imaging of the hip was performed with reformatted sagittal and coronal images. The protocol utilizes one or more of the following dose reduction techniques: automated exposure control, adjustment of mA and/or kV according to patient size,and/or use of iterative reconstruction technique. COMPARISON: X-ray 07/07/2023 FINDINGS: HIP There is severe loss of the articular joint space of the hip joint, with full thickness loss of the hyaline cartilage. There is lateral osteoarthritic spurring of the acetabular rim with a cortical erosion of the weight bearing articular surface of the cetabulum. Normal femoral neck and intertrochanteric region. VISUALIZED OSSEOUS PELVIS Normal superior and inferior pubic rami. Normal pubic symphysis. Normal bilateral ischial tuberosity. Normal visualized iliac wing, sacroiliac joint, and sacral ala. Normal visualized soft tissue structures of the pelvis. CT/Extremity Lower without Contra IMPRESSION: Severe right hip arthrosis Electronically Signed: John Wong MD at 15:53 EDT ,
== END | disposition home or self-care (01) ==
PROVIDERS: PCP Internal Medicine; Referring Provider Orthopaedic Surgery; Visit Provider Orthopaedic Surgery
DX: M16.11 Unilateral primary osteoarthritis, right hip (principal)
CPT/HCPCS: 73700

== ENCOUNTER 2023-08-15 05:34 | Day surgery (SDC) | payer OTHER, SELFPAY ==
--- NOTE | 2023-08-04 08:19 | EKG12_ITS ---
Test Reason : PREOP Blood Pressure : / mmHG Vent. Rate : 067 BPM Atrial Rate : 067 BPM P-R Int : 164 ms QRS Dur : 074 ms QT Int : 384 ms P-R-T Axes : 044 -08 039 degrees QTc Int : 405 ms Normal sinus rhythm Normal ECG Confirmed by Michael Tariq ([id number]), publication editor DYLAN FATIMA ([id number]) on 08/07/2023 10:35:12 AM Referred By: Antonio He Confirmed By:Michael Tariq
[2023-08-04 09:11] LABS: Absolute Lymphocyte Count 1.75 X10^3/uL (0.83-4.51); Absolute Neutrophil Count 3.6 X10^3/uL (2.0-7.7); Basophil# 0.05 X10^3/uL; Basophil% 0.8 % (0-1); Eosinophil# 0.28 X10^3/uL; Eosinophils% 4.5 % (0-5); Hemoglobin 14.8 g/dL (13.0-16.5); Lymphocyte # 1.75 X10^3/ul (0.83-4.51); Lymphocyte % 28.2 % (19-41); Mean Corp Hgb Conc 33.6 g/dL (32-36); Mean Corpuscular Hgb 30.3 pg (27.0-32.0); Mean Platelet Vol. 9.2 fl (6.2-12.0); Monocyte% 8.1 % (0-10); NRBC Flagged by Analyzer 0 % (0-5); Neutrophil % 58.1 % (47-70); Platelet Count 291 K/mm3 (150-450); RBC Distribution Width CV 12.7 % (11.6-14.6); RBC Distribution Width SD 41.7 fl (35.1-43.9); Red Blood Count 4.89 M/mm3 (4.6-6.2); White Blood Count 6.2 K/mm3 (4.4-11.0)
[2023-08-04 09:26] LABS: Prothrombin Time (Protime)PT. 12.9 SECONDS (11.7-14.9)
[2023-08-04 09:27] LABS: Partial Thromboplast Time 29.1 Seconds (24.1-36.2)
[2023-08-04 09:31] LABS: Anion Gap 5 (5-15); BUN 16 mg/dL (7-18); Calcium,Total 9.2 mg/dL (8.5-10.1); Chloride 105 mmol/L (98-107); EST Glomerular Filtration Rate 81 mL/min (>60); Est Glom Filt Rate - Afr Amer 98 mL/min (>60); Glucose 91 mg/dL (74-106); Potassium 4.3 mmol/L (3.5-5.1); Sodium Level 137 mmol/L (136-145)
[2023-08-04 09:42] LABS: Hemoglobin A1c 5.3 % (3.8-5.6)
[2023-08-05 09:08] LABS: Fructosamine 217 umol/L (0-285)
[2023-08-15] VITALS (15 sets, daily range): BP systolic 101–166; BP diastolic 64–148; PULSE 66–100; RESP 14–98; TEMP 36.2–37.3; O2SAT 18–100; BMI 26.8
[2023-08-15] MEDS: Lactated Ringers 1,000 ML 15 ML IV (06:26)
[2023-08-15] MEDS: Lactated Ringers 1,000 ML 999 ML IV (06:27)
[2023-08-15] MEDS: Magnesium 1 GM over 15 mins IV (06:29)
[2023-08-15] MEDS: Gabapentin 600 MG Tablet PO (06:34)
[2023-08-15] MEDS: Acetaminophen 500 MG Tablet 1000 MG PO ×2 (06:34→14:16)
[2023-08-15] MEDS: Celecoxib 200 MG Capsule 400 MG PO (06:34)
[2023-08-15] MEDS: Scopolamine 1mg/72hr Patch 1 PATCH TD (06:35)
--- NOTE | 2023-08-15 06:56 | PCM.PRE.AN2 ---
ASA Classification* ASA Classification ASA Classification: 2 Assessment & Plan Anesthesia* Anesthesia Assessment Anesthesia Assessment: Discussed sedation and/or anesthesia options, risks, benefits, and alternatives with patient/parents/legal guardian/POA. Questions invited. The patient/parents/legal guardian/POA seems to understand and agrees to proceed with anesthesia plan. Reviewed the physical assessment, medical history, allergy history and patient home medications list prior to surgery/procedure/anesthetic and documented any changes. Performed airway and anesthesia risk assessments. Anesthesia Type Anesthesia Type: General (see written pre anesthesia record for full assessment) Anesthesia Focused Assessment* Temperature: 97.1 F Pulse Rate: 69 Blood Pressure: 136/73 Respiratory Rate: 18 Pulse Ox: 100 Airway Assessment Mouth opens: >3 cm Mallampati Score: II Focused Labs Anesthesia Preop lab: CBC WBC 6.2 K/mm3 (4.4-11.0) 08/04/23 08:19 RBC 4.89 M/mm3 (4.6-6.2) 08/04/23 08:19 Hgb 14.8 g/dL (13.0-16.5) 08/04/23 08:19 Hct 44.0 % (40-54) 08/04/23 08:19 Plt Count 291 K/mm3 (150-450) 08/04/23 08:19 CHEMISTRY Potassium 4.3 mmol/L (3.5-5.1) 08/04/23 08:19 Sodium 137 mmol/L (136-145) 08/04/23 08:19 Magnesium 2.0 mg/dL (1.6-2.6) 08/04/23 08:19 BUN 16 mg/dL (7-18) 08/04/23 08:19 Creatinine 1.00 mg/dL (0.70-1.30) 08/04/23 08:19 Glucose 91 mg/dL (74-106) 08/04/23 08:19 POC Glucose 100 mg/dL (70-110) 01/09/20 06:07 COAG PT 12.9 SECONDS (11.7-14.9) 08/04/23 08:19 Pre-Assessment Diagnosis/Proposed Procedure Planned Operative Procedure(s): RIGHT TOTAL HIP ARTHROPLASTY ROBOTIC ASSISTED Anesthesia History Anesthesia History - head buyer tobacco: Anesthesia History - head buyer tobacco Hx Hospitalization No 08/01/23 10:22 Any Problems With Anesthesia No 08/01/23 10:22 Cholinesterase deficiency No 08/01/23 10:22 You/Your Family Experience No 08/01/23 10:22 fever (hyperthermia) with Relationship Recent Exposure to Contagious No 08/15/23 06:02 Disease Does patient have nerve No 08/01/23 10:22 stimulator Patient instructed to have device shut off --Does patient have Pacemaker No 08/15/23 06:05 or ICD? When Was Last Pacemaker Check QUESTION #4 FULL TEXT: You/Your Family Experience fever (hyperthermia) with Anesthesia Last Oral Intake Last Oral intake: Last Oral Intake NPO since 04:00 08/15/23 06:05 Meds taken in AM with sips of No 08/15/23 06:05 water? Meds patient instructed to take am of surgery PONV PONV - head buyer tobacco: PONV - head buyer tobacco Female No 08/01/23 10:22 HX of Motion Sickness No 08/01/23 10:22 HX of N/V After Surgery No 08/01/23 10:22 Non-Smoker Yes 08/01/23 10:22 Duration of Surgery greater Yes 08/01/23 10:22 than 60 minutes Number of Risk Factors 2 08/01/23 10:22 PONV Score Moderate Risk 08/01/23 10:22 Height & Weight Height & Weight: Anesthesia: Height & Weight Height 5 ft 6 in 08/15/23 06:05 Weight: 75.296 kg 08/15/23 06:05 Body Mass Index (BMI) 26.8 08/15/23 06:05 Respiratory Assessment Respiratory Assessment - head buyer tobacco: Respiratory Tract Infection Hx - head buyer tobacco Hx Respiratory Tract Infection No 08/01/23 10:22 STOP Sleep Apnea STOP Sleep Apnea - head buyer tobacco: STOP Sleep Apnea - head buyer tobacco Hx Hypertension No 08/01/23 10:22 Hx Sleep Apnea No 08/01/23 10:22 CPAP BIPAP Do you snore loudly (louder No 08/01/23 10:22 than talking or can be heard Do you often feel tired/ No 08/01/23 10:22 fatigued/ sleepy during daytime? Has anyone observed you stop No 08/01/23 10:22 breathing during sleep? STOP Results Negative 08/01/23 10:22 QUESTION #5 FULL TEXT : Do you snore loudly (louder than talking or can be heard through closed doors)? Tobacco Use History Tobacco Use History - head buyer tobacco: Tobacco Use History - head buyer tobacco Tobacco Use Smoking Status Never smoker 08/01/23 10:22 Hx Tobacco Use No 08/01/23 10:22 Years Smoking Packs Smoked per Day Smoking Cessation Date was within the last 15 years Hx Smoking Cessation Date Hx Smoking Cessation Counseling Hematologic Medial History Hematologic Hx - head buyer tobacco: Hematologic Medical Hx - patient carrier Hx of Blood Transfusion No 08/01/23 10:22 Hx of Transfusion in last 3 No 08/01/23 10:22 Months Date of Last Transfusion (if within last 3 months) Ever experience any problems No 08/01/23 10:22 with transfusion(s)? Specify any problems Hx of Preganancy in last 3 N/A 08/01/23 10:22 Months Nurse Filling Out Transfusion NBUCHER 08/01/23 10:22 & Questions: Date: 08/01/23 08/01/23 10:22 Time: 10:24 08/01/23 10:22 Patient unable to answer at this time (ie. confused, unrespo /Reproduction History /Reproductive History - head buyer tobacco: /Reproductive Hx- head buyer tobacco Hx Now No 08/01/23 10:22 Gestational Age (in weeks): EDC: Hx Hx Para Hx Section SAB No 08/01/23 10:22 Active Medications Active Medications: Current Medications Generic Name Dose Route Start Last Admin Trade Name Chapitoq PRN Reason Stop Dose Admin Acetaminophen 1,000 mg 08/15/23 07:30 08/15/23 06:34 Acetaminophen 500 Mg Tablet PO 08/15/23 07:31 1,000 mg X1 ONE Administration Celecoxib 400 mg 08/15/23 07:30 08/15/23 06:34 Celecoxib 200 Mg Capsule PO 08/15/23 07:31 400 mg X1 ONE Administration Dexamethasone Sodium Phosphate 10 mg 08/15/23 07:30 Dexamethasone 10 Mg/Ml Vial IV 08/15/23 07:31 X1 ONE Gabapentin 600 mg 08/15/23 07:30 08/15/23 06:34 Gabapentin 600 Mg Tablet PO 08/15/23 07:31 600 mg X1 ONE Administration Lactated Ringer's 1,000 mls @ 999 mls/hr 08/15/23 07:30 08/15/23 06:27 IV 08/15/23 08:30 999 mls/hr .Q1H1M PENNY Administration Cefazolin Sodium 2 gm/ Sodium 110 mls @ 150 mls/hr 08/15/23 07:30 Chloride IV 08/15/23 08:13 PREOP ONE Tranexamic Acid 2,000 mg/ 120 mls @ 660 mls/hr 08/15/23 07:30 Sodium Chloride IV 08/15/23 07:40 X1 ONE Lactated Ringer's 1,000 mls @ 125 mls/hr 08/15/23 07:30 IV 08/15/23 15:29 .Q8H PENNY Magnesium Sulfate 1 gm/ 102 mls @ 408 mls/hr 08/15/23 07:30 08/15/23 06:29 Dextrose IV 08/15/23 07:44 408 mls/hr X1 ONE Administration Lactated Ringer's 1,000 mls @ 15 mls/hr 08/15/23 05:45 08/15/23 06:26 IV 15 mls/hr .Q48H PENNY Administration Insulin Human Lispro 1 - 6 unit 08/15/23 07:30 Insulin Lispro 100 Unit/Ml Insuln.Pen SC Q4H PRN PRN BG>/= 180, SEE PROTOCOL Protocol Scopolamine HBr 1 patch 08/15/23 07:30 08/15/23 06:35 Scopolamine 1mg/72hr Patch TD 08/15/23 07:31 1 patch X1 ONE Administration PFSH Medical History Restless legs Smokeless tobacco use Myelomalacia H/o right foot surgery h/o lumbar surgery Home Medications ?Medication ?Instructions ?Recorded ?Last Taken ?Type celecoxib 200 mg capsule 200 mg PO BID 07/07/23 08/09/23 History Allergy/AdvReac Type Severity Reaction Status Date / Time No Known Allergies Allergy Verified 08/15/23 06:04 Family History Mother Myocardial infarction Hypertension Father Hypertension Surgical History History of wisdom tooth extraction History of colonoscopy History of cervical spinal surgery History of tonsillectomy Social History household members: spouse housing: house current occupational status: employed pets and animals: Yes Smoking Status: Never smoker Smokeless tobacco user: chewing tobacco alcohol intake: current alcohol intake frequency: a few times a week substance use type: does not use what type of physical activity do you participate in: none seatbelt use: always do you feel safe at home: Yes Review of Systems (Anesthesia) ROS Narrative System reviewed and no additional complaints, except as documented.
[2023-08-15 06:59] LABS: Bedside Glucose 106 mg/dL (74-106)
--- NOTE | 2023-08-15 07:12 | PCM.HP.BLA ---
History and Physical Date of Admission: 08/15/23 [facility] [address] [place] [address] OFFICE VISIT Date of Service: 07/07/23 MR#: [id number] Acct: [id number] Name: ARUN HOLMAN Rep #: [id number] : 1960 Provider: Dr. 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 Alan Dueñas DO) household members: spouse housing: house current occupational status: employed pets and animals: Yes Smoking Status: Former smoker Smokeless tobacco user: chewing tobacco alcohol intake: current alcohol intake frequency: a few times a week substance use type: does not use what type of physical activity do you participate in: none seatbelt use: always do you feel safe at home: Yes HPI RIGHT HIP Details: This documentation accurately reflects the service provided and the decisions made by me, Dr. Antonio He DO 07/07/23 0738. Part of today?s visit was documented by [ ], acting as scribe. ARUN HOLMAN is a 63 year old M here today for right hip pain. Right hip pain continues unchanged from previous visit. His hip pain is getting worse it is mostly in the upper groin but there is some radiation down the anterior thigh it is preventing him from sleeping as well as significantly affecting his activities of daily living. He wishes to to discuss moving forward with total hip arthroplasty. Ortho Exam General General: Yes no acute distress and Yes well groomed Neurologic: Yes alert and Yes oriented x3 Psychologic: Yes reasonable and appropriate Right Hip Skin: Yes CDI, No Ecchymosis, No soft tissue swelling and No Erythema Special Tests: No Illiotibial band tenderness HIP: 3 IR with stiffness 48 ER with pain pain in the upper groin non tender over the trochanteric bursa no masses good sensation good ankle motion He does have tenderness over the left PSIS area he does have midline lumbar incision from previous surgery without concern Left Hip HIP: pain over left PSIS Head: Normocephalic Atraumatic Chest: symmetrical rise, non-labored breathing, no audible wheeze Abdomen: no guarding, non-rigidI have examined the patient and the H&P has been reviewed. There are no clinical changes since date of exam. Supplemental Info 06/24/2020 x-ray right hip advanced hip arthrosis joint space narrowing subchondral cyst and bone spurs Coding Level of Care Code Off vis,est,level 4 Diagnoses Primary osteoarthritis of right hip M16.11 Osteoarthritis type: primary Assessment and Plan Assessment and Plan (1) Degenerative joint disease of right hip: Status: Acute Qualifiers: Osteoarthritis type: primary Qualified Code(s): M16.11 - Unilateral primary osteoarthritis, right hip Orders: Orders HIP, UNI W/ Pelvis 2-3 Views Today M16.11 - Unilateral primary osteoarthritis, right hip Plan Patient has advanced right hip arthrosis. We discussed continued conservative care including anti-inflammatories physical therapy and injections versus surgery which would at this point be a total hip arthroplasty Explained to patient how the surgical procedure works and what is done with model demonstration. Risks, benefits and alternatives of surgery reviewed including but not limited to bleeding, infection, nerve, foot drop, artery and/or tissue damage, fracture, VTE, leg length discrepancy, dislocation, need for hip precautions, continued pain and expected post-operative course. Drinks and soaps dispensed consent signed We discussed the postoperative expectations and recovery He will need medical clearance and CT scan for MAKOplasty tentative surgery date August 15, 2023 same-day surgery Follow up 2 weeks postop or sooner if pain, swelling, numbness or associated symptoms, or concerns develop. All questions answered. Patient in agreement of plan. 07/07/23 0853 <Electronically signed by Antonio He DO> Date Antonio He DO Cosigner Signature: Date (if applicable) CC: ~
--- NOTE | 2023-08-15 07:30 | FEM_PTH ---
PATIENT: ARUN HOLMAN LOC: [facility] [place] U#:[id number] AGE/SX: 63/M ROOM: RE08/15/[address]: Dr. Antonio He DO : 1960 BED: DIS: 08/15/2023 SPEC #: [id number] RECD: 08/15/23 10:49 STATUS: LASHA REJohnny #: [id number] ANNE MAREI: 08/15/23 07:[address]: Antonio He DEPT: SURGICAL PATHOLOGY RECD BY: Palak Vazquez ENTERED: 08/15/23 12:40 SP TYPE: FEM HEAD OTHR DR: Dr. Sonia Hernandez DO Tissues: Femoral region, NOS Procedures: Decalcification bone/plaque Surgery Specimen Level V HEADER OPERATION: Right total hip replacement robotic arm assisted PRE-OP DIAGNOSIS: Degenerative joint disease right hip TISSUE SUBMITTED: Bone and tissue right hip MICROSCOPIC DIAGNOSIS Right hip bone and soft tissue, total hip replacement/resection: Femoral head with degenerative osteoarthritic changes. ELVIA: 08/18/2023 MICROSCOPIC DESCRIPTION Slides are reviewed. GROSS DESCRIPTION Received is one container labeled with the patient's name and designated bone and soft tissue right hip. The specimen consists of a bautista femoral head (with portion of femoral neck). The femoral head measures 5.0 x 5.5 x 5.5 cm (and the femoral neck measures 1.0 cm in length.) The articular surface displays prominent osteophyte formation, eburnation and bone erosion. Also present in the specimen container are multiple irregular fragments of bone reamings and pink-yellow soft tissue entirely consists of bone reaming measuring in aggregate 9.0 x 8.0 x 2.5 cm. Pump Tester sections are submitted in two cassettes as follows: 1 - bone reaming after decalcification, 2 - bone after decalcification. ELVIA/ 08/15/2023 TC:5 CPT: 61454, 53267
[2023-08-15] MEDS: Cefazolin 2 GM in 0.9% Normal Saline (100mL Bag) 100 ML IV ×2 (07:36→13:06)
[2023-08-15] MEDS: TRANEXAMIC ACID 2,000 MG in 0.9% Normal Saline (100mL Bag) 100 ML 660 MG IV (07:51)
[2023-08-15] MEDS: dexAMETHasone 10 MG/ML Vial IV (08:26)
--- NOTE | 2023-08-15 09:46 | PCM.OP.BLANK ---
Operative Report Date of Procedure: 08/15/23 Preoperative diagnosis: Right hip DJD with 10 mm of shortening Postoperative diagnosis: Same Procedure: CT-guided Makoplasty assisted right total hip arthroplasty Implants: [place] Accolade II stem size 5, 127 degree neck angle +2.5 head neck length 54 mm Trident II acetabular shell with 40 mm cancellous screw 36 mm ceramic head, neutral Trident X3 polyethylene insert. 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 My physician accountant assistant was a vital part of this case. He was important in appropriate retraction during the case, and protection of soft tissues during procedure. His intimate knowledge of the case and my steps aided in safe and expedient completion of the procedure as well as appropriate position of the extremity during the case. He was also vital in assisting with closure under my direct supervision. Indication for procedure: This is a 63-year-old male who has had long-standing arthrosis of the hip who has failed conservative treatment and wished to undergo total hip arthroplasty. We did discuss operative versus nonoperative intervention including risks of bleeding, infection , nerve artery tissue damage, need for further surgery, fracture, leg length discrepancy dislocation blood clot and need for postoperative physical therapy and postoperative expectations. An informed consent was signed. Procedure: Patient was met in the preoperative holding area once again the operative extremity was identified by both patient and physician and was marked. Patient was met by anesthesia . Anesthesia was started. patient was then positioned in the lateral decubitus position on a well-padded pegboard with an axillary roll. All bony prominences were checked and padded. The patient was prepped and draped in the usual sterile fashion. A timeout was called to ensure the proper patient procedure and extremity were being contemplated. Anatomic landmarks were palpated and marked for a standard posterior lateral approach. Prior to this the ASIS was palpated and 3 fingerbreadths proximal to this 3 pins were placed at a 45 degree angle into the iliac crest with good purchase, stab incisions were made with a 15 blade into the skin prior to placement. The Makoplasty array was then secured. A 10 blade scalpel was used to make a posterior incision through the skin and subcutaneous tissue. retractors were used and electrocautery was used to maintain meticulous hemostasis and dissect full-thickness flaps until the gluteal fascia was reached. The gluteal fascia was incised in line with the gluteal fibers. The bursal tissue was then freed from the underside and a Charnley retractor was placed. The femoral trochanteric checkpoint was placed and leg length was assessed using the trochanteric checkpoint and an EKG lead that was placed on the knee prior to prepping the leg .the fat pad was then elevated off of the external rotators with electrocautery and the external rotators were dissected off of the greater trochanter including the piriformis and were tagged with #1 Ethibond for later repair. The joint capsule opened with posterior trapdoor technique. The hip was surgically dislocated. The measurement on the preoperative CT from the top of the lesser trochanter to the femoral neck cut was marked Hohmann was placed around the lesser trochanter. A neck cutting guide was used to zhou the neck with a Bovie and an oscillating saw was used complete the femoral neck cut. The femoral head was then removed and sized. We then turned our attention to the acetabulum. A Bovie was used to make a perforation in the anterior joint capsule and a Moreno retractor was placed this was repeated in the 6 o'clock position and a wide aditi was placed there. With a long handled knife the labral and pulvinar tissue were removed. We then registered the acetabulum with the pointing array and confirmed our landmarks. Once the socket was thoroughly prepared and labral tissue and pulvinar was removed we single reamed with the robotic arm. We then used the robotic arm to position the acetabular implant and impacted it into place under robotic guidance. We then proceeded to place a posterior superior screw by drilling first measuring and inserting the screw. We then inserted a trial liner. And turned our attention back to the femur at this point a femoral elevator was used. As well as a pointed wide Hohmann around the lesser trochanter and a Hohmann to help retract the gluteus medius. A box chisel was used to remove excess lateral neck followed by a canal finder and a lateralizing reamer. This was followed by sequential broaches. Attention was made of the version within the canal based on preoperative templating. Once the final broach was seated we then trialed reduced the hip it was determined that a 127 degree neck angle with a +2.5 neck length was the appropriate size this made him 4 mm longer than preop I felt that any titer would be too much as I could only get his hip to extend to neutral at this point even though he was still 4 mm shorter than his contralateral. We then checked stability with shuck testing as well as flexion and internal rotation. then proceeded with hip extension and checked leg lengths at the knees and heels as well as with the trochanteric checkpoint and knee EKG lead. At this point trials were removed. A liner was inserted to the cup. The femoral stem was inserted. We re-trialed and then proceeded to impact the femoral head onto the Shimon taper. We then surgically reduce the hip check stability again and leg lengths and were satisfied. Betadine rinse was allowed to sit for 5 minutes while everyone changed their gloves. Thorough irrigation was performed. Followed by closure of the external rotators with #2 FiberWire followed by closure of gluteal fascia with #1 Ethibond. 0 Vicryl fat stitches and 2-0 Vicryl subcutaneous stitches and karma in the skin. Karma were placed in the skin pin sites over the iliac crest and dressed with a Mepilex dressing. The main incision was dressed with a Mepilex ag dressing and an abduction pillow was placed. Patient tolerated the procedure well there was no intraoperative complications all counts were correct and the patient was brought back to the PACU in stable condition
--- NOTE | 2023-08-15 09:49 | RAD_ITS ---
STUDY: X-RAY - PELVIS AND RIGHT HIP REASON FOR EXAM: Male, 63 years old. post op -- in PACU TECHNIQUE: 2 views of the pelvis and hip. COMPARISON: 07/07/2023 FINDINGS: There is a non-specific bowel gas pattern. Normal visualized soft tissue structures. Normal bilateral iliac wings, sacroiliac joints and visualized sacrum. Normal bilateral superior and inferior pubic rami. Normal pubic symphysis. Normal bilateral ischial tuberosities. Status post recent total hip arthroplasty with skin kenny and subcutaneous emphysema. . RAD/Hip Min 2 Views (Portable) IMPRESSION: Status post recent total hip arthroplasty. Electronically Signed: John Wong MD at 12:48 EDT ,
--- NOTE | 2023-08-15 09:52 | DCINST_ITS ---
Discharge Instructions Diet Discharge Diet: No restrictions Dressing / Incision Call your doctor if you observe: Shortness of breath and Chest pain Additional Dressing/Incision Instructions:: Do not shower 72hrs. Begin daily showering warm water antibacterial soap postop day #3( 72hrs Post-operatively) and then daily. Leave the dressing on for 72 hours postoperatively then may remove prior to first shower and change dressing daily after this until no drainage for 2 consecutive days then may leave open to air. Follow hip precautions that were reviewed in hospital. Wear compression stockings, may remove at night. Start physical therapy as directed in hospital. Follow prescriptions instructions do not take any other pain medication or differ dosing without consulting your physician. Do not take oral NSAIDs until blood thinner has been completed , then may begin the day after completion if needed . Call Dr. He's office with any concerns. Follow Up Care Please Follow Up With: Antonio He DO When: 2 weeks Test Results: Test results from this visit will be discussed in further detail at your follow- up appointment, if applicable. Discharge Plan Admission Primary Reason for Your Visit: Right total hip arthroplasty Attending Provider: Antonio He Primary Care Provider: Sonia Hernandez Instructions Print Language: Turkmen Discharge Orders/Prescriptions Prescriptions: New acetaminophen 500 mg tablet 1,000 mg PO Q6H Qty: 100 0RF cephalexin 500 mg capsule 1,000 mg PO Q8H Qty: 4 0RF Rx Instructions: Take 2 tabs before you go to bed and 2 tabs after 5 AM morning after surgery when you wake up oxycodone 5 mg tablet 5 - 10 mg PO Q6H PRN (Reason: pain) 7 Days Qty: 60 0RF Eliquis 2.5 mg tablet 2.5 mg PO BID Qty: 42 0RF Rx Instructions: Begin morning after surgery. Held celecoxib 200 mg capsule 200 mg PO BID Hold Instructions: Resume on 09/06/23. after completion of blood thinner Other Ambulatory Orders: 12 Lead EKG (Routine) Timeframe: [id number] Location: None Selected Ordered By: Dr. Antonio He Referrals / Follow Up: Sonia Hernandez DO [Primary Care Provider] - Disposition Disposition (needs filled in before D/C Order can be placed): Home, Self Care
--- NOTE | 2023-08-15 10:09 | PCM.POST.ANE ---
Anesthesia: Postop Eval I Current Vital Signs Temperature: 97.7 F Pulse Rate: 98 Blood Pressure: 117/97 Respiratory Rate: 20 Pulse Ox: 97 Oxygen Delivery Method: Nasal Cannula (Oxygen is 4 L for the ERAS protocol) Assessment Airway patent: Yes Spontaneous unlabored respirations: Yes Mental status: Awake and Calm nausea: No Vomiting: No Anesthesia Complication: No Fluid Hydration Crystalloid volume administer (ml): 800 Total IV fluid infused: 800 Progress Note Anesthesia document: Postop Eval 1 completed: Yes
[2023-08-15] MEDS: 0.9% Normal Saline (1000mL) 1,000 ML 125 ML IV (11:05)
--- NOTE | 2023-08-15 11:50 | PCM.POSTANE2 ---
Anesthesia Postop Eval I Sum Postop Eval Completion status Anesthesia document: Postop Eval 1 completed: Yes Anesthesia Postop Eval I Summary Anesthesia Postop Eval I Summary: Anesthesia Postop Eval I: Assessment Summary Airway patent Yes 08/15/23 10:13 Spontaneous unlabored Yes 08/15/23 10:13 respirations Mental status Awake,Calm 08/15/23 10:13 nausea No 08/15/23 10:13 Vomiting No 08/15/23 10:13 Anesthesia Postop Eval I: Fluid Summary Crystalloid volume administer 800 08/15/23 10:13 (ml) Colloids volume administered ( ml) Blood Product volume administered (ml) Total IV fluid infused 800 08/15/23 10:13 Anesthesia Postop Eval I: Summary Notes Anesthesia Complication No 08/15/23 10:13 Anesthesia Complication Comment: Post-operative progress note Anesthesia: Postop Eval II Evaluation Mental status: Awake Pain Level: 0 nausea: No Vomiting: No Complications Anesthesia Complication: No
[2023-08-15] MEDS: Ketorolac 30 MG/ML Syringe IV (12:06)
== END 2023-08-15 17:02 | disposition home or self-care (01) ==
LOC: SDC 05:36 → AC 05:37
PROVIDERS: Anesthesiology; PCP Internal Medicine; Referring Provider Orthopaedic Surgery; Visit Provider Orthopaedic Surgery
PROC: 8E0Y0CZ Robotic Assisted Procedure of Lower Extremity, Open Approach (ICD-10-PCS; CPT 27130; principal; 2023-08-15 07:00)
DX: M16.11 Unilateral primary osteoarthritis, right hip (principal); Z87.891 Personal history of nicotine dependence
CPT/HCPCS: 27130; 01214; 36415; 73502; 80048; 82962; 82985; 83036; 83735; 85025; 85610; 85730; 86850; 86900; 86901; 87081; 88307; 88311; 93005; 97162; C1713; C1776; J7030; J7120; J2405; J3475

== ENCOUNTER 2023-12-08 09:30 | Outpatient (RCR) | payer OTHER, SELFPAY ==
--- NOTE | 2023-08-18 11:53 | HP.PTEVAL ---
Patient's Visit Information Visit Information Visit Information: ARUN HOLMAN is a 63 year old M referred to Physical Therapy by Dr. Antonio He DO with a diagnosis of UNILATERAL PRIMARY OSTEOARTHRITIS ,RIGHT HIP. Date of Evaluation: 08/18/23 Physical Therapist: Danny Ventura PT, Cert MDT, OCS Visit Plan Frequency: 2x /Week Duration: 6 Weeks Plan: S/P VERONICA POSTERIOR APPROACH 08/15/23 HIP PRECAUTIONS ,WBAT PT INTERVENTIONS ROM HIP ,STRENGTHENING HIP/QUADS/HAMS ,GAIT TRAINING ,BALANCE PROGRAM ,FUNCTIONAL STRENGTHENING AND HIP PRECAUTIONS Subjective Subjective: This 63 y/o male presents to physical therapy s/p right VERONICA . Patient underwent s/p VERONICA posterior approach robotic assist om 08/15/[address] at [facility] and D/C DOS . Patient d/c WBAT RLE with hip precautions . Patient has had hip pain many years. Patient has min pain . Patient medication oxycodone . Patient is showering tube/shower set up. Patient lives in [place] home with ramp. Patient sleeping in a recliner . Patient RTD 08/31 . Patient sleeps in a recliner. Patient denies paresthesia/tingling. Bowel/bladder -. Patient has limitations with ADLS ,housework tasks and unable to return to work. Patient goals walking normal and RTW. VOCATION: [employer]; Pain Right Hip: Pain Intensity (Out of 10): 2 Pain Intensity Range: 10 Objective Objective: POSTURE; mild forward posture ,knees slightly flexed knees GAIT :ambulates with fww WBAT RLE slow john decrease stance time RLE SKIN: incision well approximated kenny intact no drainage AAROM: supine hip flexion 45 degrees ,knee flexion 90 degrees ,hip abduction 10 degrees BALANCE: fair+ with fww MMT:( peak force) 12.9 quads ,hamstrings 17.2 ,hip flexion 0 ,hip abduction 0 , hip extension 0 ,ankle 4/5 STAIRS: one step at time with rails Balance/Special Test Scores Lower Extremity Functional Score: 12 TUG Test Time Seconds: 41.9 WOMAC Total Score: 68 WOMAC Percentatge: 29.1700 Goals Goal 1:: Patient to be I with HEP for VERONICA Goal Time Frame: 6-8 Weeks Goal 2:: Patient to improve peak force quads/hams/hip bu 15-20# strength to improve gait Goal Time Frame: 6-8 Weeks Goal 3:: Patient to improve LFES score by 10-15 # to improve QOL and gait Goal Time Frame: 6-8 Weeks Goal 4:: Patient to ambulate with normal john Goal Time Frame: 6-8 Weeks Goal 5:: Patient to improve WOMAC score by 10-15 # points to improve QOL Goal Time Frame: 6-8 Weeks Goal 6:: Patient to improve TUG score < 15 seconds Goal Time Frame: 4-6 Weeks Rehabilitation Potential Physical Therapy Diagnosis: This patient underwent s/p VERONICA posterior approach with WBAT with pain ,decrease ROM ,weakness hip/quads/hams , impairs gait ,balance and RTW thusn benefit from skilled PT Rehabilitation Potential: Good Anticipated Interventions Patient/Client Instruction: Educate patient on: Condition and Plan of Care For the Purpose of:: To decrease pain, To increase ROM, To improve muscle performance and motor function, To increase tolerance to activity/condition/position, To improve ability of physical actions for home/community/work/leisure, To improve gait and locomotor functions, To increase flexibility/ROM, To improve endurance, To improve balance, To improve safety with gait and To improve tolerance to ADL's Therapeutic Exercise to Include: Strength training, Endurance training, Balance training, Gait and locomotor training and Active ROM Comment: quads/hams/hip For the Purpose of:: To decrease pain, To increase ROM, To improve muscle performance and motor function, To improve ability to perform ADL's, To increase tolerance to activity/condition/position, To improve ability of physical actions for home/community/work/leisure, To improve gait and locomotor functions, To increase flexibility/ROM, To improve endurance, To improve balance, To improve safety with gait and To improve tolerance to ADL's Other: rtw Text: Thank you for the opportunity to evaluate your patient. For Medicare and Medicare HMO plans, please review the plan of care and approve it. It will need to be FAXED BACK to us at [phone] for Medicare purposes. For Medicare only, by signing this I certify the plan of care. Please let me know if there are questions or concerns regarding this plan of care. Physician Signature: Date:
--- NOTE | 2023-12-08 10:26 | HP.PTDCSUM ---
Discharge Summary D/C summary: It has been my pleasure to treat ARUN HOLMAN referred by Dr. Antonio He DO, with the diagnosis of UNILATERAL PRIMARY OSTEOARTHRITIS ,RIGHT HIP for a total of 34 visit(s). Discharge Date: 12/08/23 Please see the following information for a summary of their discharge status. Subjective Subjective: Doing well ,ready for d/c Pain Right Hip: Pain Intensity (Out of 10): 3 Overall Improvement % Improvement: 85 Objective Objective/Function: POSTURE; mild forward posture ,knees slightly flexed knees GAIT :ambulates decrease stance time RLE no device SKIN: good AROM: supine hip flexion 100 degrees ,knee flexion 130 degrees ,hip abduction 35 degrees BALANCE: good- MMT:( peak force) 44.3 quads ,hamstrings 35.2 ,hip flexion 38.8 ,hip abduction 23.9 , hip extension 23.1 ,ankle 4/5 STAIRS: alternating with rail Goals Goal 1:: Patient to be I with HEP for VERONICA Goal Progress: Goal Met Goal 2:: Patient to improve peak force quads/hams/hip bu 15-20# strength to improve gait Goal Progress: Goal Met Goal 3:: Patient to improve LFES score by 10-15 POINTS to improve QOL and gait Goal Progress: Goal Met Goal 4:: Patient to ambulate with normal john Goal Progress: Goal Met Goal 5:: Patient to improve WOMAC score by 10-15 # points to improve QOL( [place]) Goal Progress: Goal Met Goal 6:: Patient to improve TUG score < 15 seconds Goal Progress: Goal Met Plan Plan: D/C D/C Information Discharge Comments: HEP d/c sentence: If there are questions or concerns regarding this patient's physical therapy, please feel free to call me at [phone]. Thank you for the referral of this patient. Sincerely, Danny Ventura, PT, Cert MDT, OCS Balance/Gait/Functional tests Balance/Special Test Scores Lower Extremity Functional Score: 54 TUG Test Time Seconds: 10.1 Tug Test: <10 sec.=free mobile WOMAC Total Score: 11 WOMAC Percentage: 88.0500 Improvement % Improvement: 85
== END 2023-12-08 19:00 | disposition home or self-care (01) ==
LOC: PT 09:30
PROVIDERS: PCP Internal Medicine; Visit Provider Orthopaedic Surgery
DX: M16.11 Unilateral primary osteoarthritis, right hip (principal); Z96.641 Presence of right artificial hip joint
CPT/HCPCS: 97110; 97162; 97530

== ENCOUNTER 2024-01-30 16:07 | Emergency (ER) | payer OTHER, SELFPAY ==
[2024-01-30 16:08] VITALS: BP 173/97; PULSE 91; RESP 15; TEMP 37.1; O2SAT 100; BMI 27.7
--- NOTE | 2024-01-30 16:22 | CT_ITS ---
STUDY: CT ABDOMEN AND PELVIS WITH CONTRAST REASON FOR EXAM: Male, 63 years old. Right lower quadrant abdominal pain RADIATION DOSAGE (If Supplied By Facility): CTDIvol = ( 19.81 ) mGy, DLP = ( 1010.47 ) mGycm TECHNIQUE: Transaxial images were obtained from the dome of the diaphragm to the symphysis pubis without oral contrast. IV 100mL Isovue-370 was administered. Sagittal and coronal images were reconstructed. Individualized dose optimization techniques were used for this CT. COMPARISON: None. FINDINGS: The visualized lung bases are unremarkable. The visualized portions of the heart are within normal limits. Normal liver. Normal gallbladder and extrahepatic biliary system. Normal spleen. Normal pancreas. Normal bilateral adrenal glands. Normal right kidney. Normal left kidney. Normal visualized stomach. Normal small intestine. Normal colon. The appendix is visualized and appears normal. Normal abdominal aorta. Normal inferior vena cava. Normal retroperitoneum. Normal urinary bladder. Normal abdominal wall. There is a right hip prosthesis in place. CT/Abdomen/Pelvis W IV Cont ONLY IMPRESSION: No acute pathology of the abdomen and pelvis. Electronically Signed: Dave Olivia DO at 17:29 [facility] Reading Location ID and State: [facility] / [place] Tel [phone], Service support ,
--- NOTE | 2024-01-30 16:24 | ED.VIS.FEGU ---
HPI HPI - Female History of Present Illness Chief Complaint: Flank Pain Narrative Narrative: Chief complaint and HPI: Right lower quadrant abdominal pain. 63-year-old gentleman with history of arthritis presents for evaluation of right lower quadrant abdominal pain. Onset of symptoms yesterday. Patient states it periodically radiates around his flank to his back. He denies any fever, chills, nausea, vomiting, diarrhea, constipation, chest pain, shortness of breath, dysuria, hematuria, penile or testicular pain. Denies history of abdominal surgery. Denies history of urolithiasis. Last ate lunch at approximately noon. Review of systems: See HPI Medications: As listed on the chart Allergies: As listed on the chart PFSH: Per chart Vital signs: As listed on the chart. Reviewed. Physical exam: Gen: A&O x3, NAD Head: Normocephalic, atraumatic Eyes: No sclera icterus, conjunctiva clear ENT: Moist mucous membranes Neck: Trachea midline, No JVD CV: RRR, no murmurs, no peripheral edema Resp: Lungs CTA BL, no w/r/c GI: Abd soft, non-distended, mild tenderness to palpation of the right lower quadrant, no r/r/g : Circumcised penis. No penile tenderness or discharge. No penile or testicular swelling. Normal lie and position of the testicles. No testicular tenderness, masses, or skin changes. No rashes. No palpable hernias. No CVA tenderness Musc: Full ROM, no deformity Skin: Warm, dry Neuro: Alert, oriented, grossly intact, sensation intact Psych: Cooperative, appropriate mood and affect [facility] Medical History Restless legs Smokeless tobacco use Myelomalacia H/o right foot surgery h/o lumbar surgery Home Medications ?Medication ?Instructions ?Recorded ?Last Taken ?Type celecoxib 200 mg capsule 200 mg PO BID 07/07/23 08/09/23 History Allergy/AdvReac Type Severity Reaction Status Date / Time No Known Allergies Allergy Verified 01/30/24 16:07 Family History Mother Myocardial infarction Hypertension Father Hypertension Surgical History History of wisdom tooth extraction History of colonoscopy History of cervical spinal surgery History of tonsillectomy Social History household members: spouse housing: house current occupational status: employed pets and animals: Yes Smoking Status: Never smoker Smokeless tobacco user: chewing tobacco alcohol intake: current alcohol intake frequency: a few times a week substance use type: does not use what type of physical activity do you participate in: none seatbelt use: always do you feel safe at home: Yes EXAM Physical Exam Const Vital Signs: 01/30/24 16:08 Temperature 98.7 F Temperature Source Oral Pulse Rate 91 Respiratory Rate 15 Blood Pressure 173/97 H Blood Pressure Mean 122 Pulse Ox 100 Oxygen Delivery Method Room Air MDM MDM MDM Narrative Medical decision making narrative: 63-year-old gentleman with history of arthritis presents for evaluation of right lower quadrant abdominal pain. Differential diagnosis includes but is not limited to appendicitis, urolithiasis, gastroenteritis, UTI, hernia. Zofran and morphine ordered for symptoms. Laboratory workup ordered including CT abdomen pelvis. CBC without leukocytosis or anemia. CMP without DAVID or transaminitis. CT abdomen pelvis shows no acute intra-abdominal pathology. UA negative for UTI. At this point in time, no clear etiology for patient's symptoms. May be secondary to viral illness or muscle strain. Patient was educated on all his results. He was told to return back to the ED if symptoms change or worsen as we may be just catching the pathology too early. Follow-up with PCP. Tylenol Motrin as needed for pain. Patient understand the plan. Patient stable to discharge home. Impression: 1. Abdominal pain Lab Data Labs: Laboratory Results - last 24 hr 01/30/24 01/30/24 16:30 17:37 WBC 8.9 RBC 4.82 Hgb 14.8 Hct 43.3 MCV 89.8 MCH 30.7 MCHC 34.2 RDW Std Deviation 41.4 RDW Coeff of Dev 12.6 Plt Count 315 MPV 8.7 Immature Gran % (Auto) 0.300 Neut % (Auto) 63.0 Lymph % (Auto) 25.0 [place] % (Auto) 7.5 Eos % (Auto) 3.4 Baso % (Auto) 0.8 Absolute Neuts (auto) 5.6 Absolute Lymphs (auto) 2.21 Nucleated RBC % 0 Sodium 138 Potassium 4.0 Chloride 104 Carbon Dioxide 29.0 Anion Gap 4 L BUN 16 Creatinine 0.96 Estim Creat Clear Calc 79.42 Est GFR (MDRD) Af Amer 102 Est GFR (MDRD) Non-Af 84 BUN/Creatinine Ratio 16.6 Glucose 92 Calcium 9.0 Total Bilirubin 0.30 AST 14 L ALT 28 Alkaline Phosphatase 143 H Total Protein 7.6 Albumin 3.8 Globulin 3.8 Albumin/Globulin Ratio 1.0 Urine Color Yellow Urine Clarity Clear Urine pH 6.5 Ur Specific [place] 1.010 Urine Protein Negative Urine Glucose (UA) Normal Urine Ketones Negative Urine Occult Blood Negative Urine Nitrite Negative Urine Bilirubin Negative Urine Urobilinogen Normal Ur Leukocyte Esterase Negative Urine RBC 0 SEEN Urine WBC 0-5 SEEN Ur Squamous Epith Cells 0 SEEN Urine Bacteria 0 SEEN Urine Mucus 0 SEEN Radiography Diagnostic Testing: Clinical Impression(s) from Imaging Studies Abdomen/Pelvis CT 01/30/24 16:22 IMPRESSION: No acute pathology of the abdomen and pelvis. Electronically Signed: Dave Olivia DO at 17:29 EST Reading Location ID and State: [facility] / [place] Tel [phone], Service support , Discharge Plan Triage Chief Complaint: Flank Pain ED Provider: Jim Iqbal Dx/Rx/DC Orders Clinical Impression: Abdominal pain Instructions: Medicine for Pain, ED Pain, Acute, Uncertain Cause Prescriptions: No Action celecoxib 200 mg capsule 200 mg PO BID Primary Care Provider: Sonia Hernandez Referrals: Sonia Hernandez DO [Primary Care Provider] - 3-5 Days Activity Restrictions/Additional Instructions: Follow-up with your primary care physician. Return back to the ED if symptoms change or worsen Print Language: Armenian Disposition Disposition: Home, Self Care
[2024-01-30] MEDS: Ondansetron 4 MG/2 ML Vial IV (16:27)
[2024-01-30] MEDS: Morphine 4 MG/ML Syringe IV (16:27)
[2024-01-30 16:36] LABS: Absolute Lymphocyte Count 2.21 X10^3/uL (0.83-4.51); Absolute Neutrophil Count 5.6 X10^3/uL (2.0-7.7); Basophil# 0.07 X10^3/uL; Basophil% 0.8 % (0-1); Eosinophils% 3.4 % (0-5); Hematocrit 43.3 % (40-54); Hemoglobin 14.8 g/dL (13.0-16.5); Lymphocyte # 2.21 X10^3/ul (0.83-4.51); Mean Corp Hgb Conc 34.2 g/dL (32-36); Mean Corpuscular Hgb 30.7 pg (27.0-32.0); Mean Corpuscular Volume 89.8 fL (80-94); Mean Platelet Vol. 8.7 fl (6.2-12.0); Monocyte# 0.66 X10^3/uL; Monocyte% 7.5 % (0-10); NRBC Flagged by Analyzer 0 % (0-5); Neutrophil # 5.58 X10^3/uL (2.7-7.7); Platelet Count 315 K/mm3 (150-450); RBC Distribution Width CV 12.6 % (11.6-14.6); RBC Distribution Width SD 41.4 fl (35.1-43.9); Red Blood Count 4.82 M/mm3 (4.6-6.2); White Blood Count 8.9 K/mm3 (4.4-11.0)
[2024-01-30 16:51] LABS: AST(SGOT) 14 U/L (15-37); Alanine Aminotransfer ALT/SGPT 28 U/L (16-61); Albumin, Serum 3.8 g/dL (3.2-5.0); Alkaline Phosphatase 143 U/L (45-117); Anion Gap 4 (5-15); BUN 16 mg/dL (7-18); BUN/Creat Ratio 16.6 RATIO (10-20); Chloride 104 mmol/L (98-107); Creatinine, Serum 0.96 mg/dL (0.70-1.30); EST Glomerular Filtration Rate 84 mL/min (>60); Est Glom Filt Rate - Afr Amer 102 mL/min (>60); Estimated Creatinine Clearance 79.42 ml/min; Globulin 3.8 g/dL (2.2-4.2); Glucose 92 mg/dL (74-106); Protein, Total 7.6 g/dL (6.4-8.2); Sodium Level 138 mmol/L (136-145)
[2024-01-30 17:43] LABS: Bacteria 0 SEEN /hpf (None Seen); Mucous, Urine 0 SEEN /hpf (<or=2+); Squamous Epithelial Cells - UA 0 SEEN /hpf (0-5)
[2024-01-30 17:44] LABS: Color, Urine Yellow (Yellow); Glucose, Dipstick Normal (Normal); Ketone-Dipstick Negative (Negative); Leukocyte Esterase-Dipstick Negative /ul (Negative); Nitrite-Dipstick Negative (Negative); Occult Blood-Urine Negative /ul (Negative); Protein-Dipstick Negative (Negative); Urine Bilirubin Dipstick Negative (Negative); Urine Clarity Clear (Clear); Urine Urobilinogen Normal (Normal); Urine pH 6.5 (5.0 - 8.0)
[2024-01-30 17:58] LABS: Red Blood Cells-Urine 0 SEEN /hpf (0-5); White Blood Cells 0-5 SEEN /hpf (0-5)
== END 2024-01-30 18:11 | disposition home or self-care (01) ==
PROVIDERS: Emergency Provider Surgery; PCP Internal Medicine; Referring Provider Surgery; Visit Provider Surgery
DX: R10.31 Right lower quadrant pain (principal); F17.220 Nicotine dependence, chewing tobacco, uncomplicated
CPT/HCPCS: 74177; 80053; 81001; 85025; 96374; 96375; 99282; Q9967; A4216; J2405